=== PATIENT | female | born 1990 | race Caucasian/White ===

== ENCOUNTER → 2018-02-22 09:19 | Outpatient (CLI) | payer OTHER, SELFPAY ==
--- NOTE | 2018-02-22 09:21 | DI.US.S_ITS ---
PROCEDURE: US PELVIC COMPLETE INDICATIONS: left pelvic pain TECHNIQUE: Real-time scanning was performed of the pelvic organs, with image documentation. Additional endovaginal scanning was necessary due to incomplete visualization of the adnexal and endometrial structures by transabdominal scanning. COMPARISON: None. FINDINGS: Transabdominal scanning: Limited scanning through the kidneys shows no hydronephrosis. No pathologic free abdominal or pelvic fluid. Endovaginal scanning: Uterus: Uterus is normal in size at 4.0 x 5.9 x 8.6 cm, anteverted. The endometrium measures 12 mm in combined thickness. There is echogenic fluid within the endometrial space measuring up to 1.0 x 0.4 x 0.8 cm. A 4 x 5 x 3 mm polyp is noted within the endometrial canal Ovaries: The right ovary measures 2.1 x 2.6 x 2.5 cm and the left measures 1.8 x 2.6 x 3.4 cm. There is a cyst involving the left ovary containing low level internal echoes measuring up to 1.4 cm in maximal dimension. IMPRESSION: Anteverted uterus normal in size, without uterine fibroids. Endometrial lining demonstrates a 3 x 4 x 5 mm polyp and a very small amount of endometrial free fluid containing low level internal echoes. No adnexal mass lesion is seen. Note is made of a presumed hemorrhagic left ovarian small cyst measuring only 1.4 cm in maximal dimension. Dictated by: Rylan Jackson M.D. on 02/22/2018 at 13:05 Approved by: Rylan Jackson M.D. on 02/22/2018 at 13:08
== END ==
PROVIDERS: PCP Family Medicine; Visit Provider Registered Nurse
DX: R10.2 Pelvic and perineal pain (principal); N83.202 Unspecified ovarian cyst, left side; N84.0 Polyp of corpus uteri
CPT/HCPCS: 76830; 76856

== ENCOUNTER → 2018-02-26 14:14 | Outpatient (CLI) | payer OTHER, SELFPAY ==
[2018-02-26 15:25] LABS: Pregnancy Test Serum,Qual Positive (Negative)
== END ==
PROVIDERS: PCP Family Medicine; Visit Provider Registered Nurse
DX: N92.6 Irregular menstruation, unspecified (principal)
CPT/HCPCS: 36415; 84703

== ENCOUNTER → 2018-02-27 13:00 | Outpatient (CLI) | payer OTHER, SELFPAY | PROVIDERS: PCP Family Medicine | DX: Z23 Encounter for immunization (principal) | CPT/HCPCS: 90471; 90686 ==

== ENCOUNTER → 2018-03-12 10:04 | Outpatient (CLI) | payer OTHER, SELFPAY ==
[2018-03-12 11:03] LABS: HCG Quantitative /Beta subunit 9490.7 mIU/mL
--- NOTE | 2018-03-12 11:24 | DI.US.S_ITS ---
PROCEDURE: US PELVIC COMPLETE INDICATIONS: POSITIVE HCG; HEAVY BLEEDING TECHNIQUE: Real-time scanning was performed of the pelvic organs, with image documentation. Additional endovaginal scanning was necessary due to incomplete visualization of the adnexal and endometrial structures by transabdominal scanning. COMPARISON: [facility], US, US PELVIC COMPLETE, 02/22/2018, 10:02. FINDINGS: Transabdominal scanning: Limited scanning through the kidneys shows no hydronephrosis. No pathologic free abdominal or pelvic fluid. Endovaginal scanning: Uterus: Uterus is normal in size at 9.7 x 4.2 x 5.3 cm. The endometrium measures 11.6mm in combined thickness. No intrauterine is seen. Endometrial complex is irregular and heterogeneous with small amount of endometrial fluid. Ovaries: Ovaries normal bilaterally with left corpus luteal cyst measuring 1.5 x 1.3 x 1.1 cm. No adnexal masses or free fluid seen. IMPRESSION: 1. No intrauterine is seen and there is heterogeneity and complex endometrial fluid present which may represent clot. Very early intrauterine or occult ectopic cannot be excluded and close clinical correlation is recommended. If indicated followup ultrasound could be performed. Dictated by: Young Mclaughlin [facility] Interpreted: Harley Foley MD on 03/12/2018 at 14:06 Approved by: Harley Foley M.D. on 03/12/2018 at 15:58
== END ==
PROVIDERS: PCP Family Medicine; Visit Provider Family Medicine
DX: O26.859 Spotting complicating pregnancy, unspecified trimester (principal)
CPT/HCPCS: 36415; 76830; 76856; 84702

== ENCOUNTER → 2018-03-14 09:41 | Outpatient (CLI) | payer OTHER, SELFPAY ==
[2018-03-14 12:07] LABS: HCG Quantitative /Beta subunit 805.38 mIU/mL
== END ==
PROVIDERS: PCP Family Medicine; Visit Provider Family Medicine
DX: O03.9 Complete or unspecified spontaneous abortion without complication (principal)
CPT/HCPCS: 36415; 84702

== ENCOUNTER → 2018-03-16 11:49 | Outpatient (CLI) | payer OTHER, SELFPAY ==
[2018-03-16 14:42] LABS: HCG Quantitative /Beta subunit 222.62 mIU/mL
== END ==
PROVIDERS: PCP Family Medicine; Visit Provider Family Medicine
DX: O03.9 Complete or unspecified spontaneous abortion without complication (principal)
CPT/HCPCS: 36415; 84702

== ENCOUNTER → 2018-03-26 09:27 | Outpatient (CLI) | payer OTHER, SELFPAY ==
[2018-03-26 10:57] LABS: HCG Quantitative /Beta subunit 9.01 mIU/mL
== END ==
PROVIDERS: PCP Family Medicine; Visit Provider Family Medicine
DX: O03.9 Complete or unspecified spontaneous abortion without complication (principal)
CPT/HCPCS: 36415; 84702

== ENCOUNTER 2018-07-13 07:57 | Day surgery (SDC) | payer OTHER, SELFPAY ==
[2018-07-10 09:30] VITALS: BMI 41.9
[2018-07-13] VITALS (7 sets, daily range): BP systolic 97–123; BP diastolic 60–81; PULSE 69–85; RESP 12–16; TEMP 36.2–36.6; O2SAT 94–97; BMI 42.4
--- NOTE | 2018-07-13 | PATH_ITS ---
[facility] Accession Number: [id number] . 01 Material submitted: . LEEP BIOPSY . 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 ROBERTO-3 focally present at endocervical margin (at 12 o'clock to 3 o'clock aspect). Ectocervical margin negative for neoplasm. Negative for malignancy. MRV/07/16/2018 . 02 Electronically signed: . [place] MD, PhD, Pathologist NPI- [id number] . 01 Gross description: . Received in formalin, labeled short suture @ 6 o'clock, long suture @ 12 o'clock, LEEP biopsy, is a cervical LEEP biopsy received in two pieces oriented with two black sutures (long-12 o'clock, short-6 o'clock). Piece #1 (3.0 x 1.5 x 0.5 cm) is designated as 12 o'clock and piece #2 (2.5 x 1.2 x 0.3 cm) is designated as 6 o'clock. The mucosa is hester-white smooth and shiny. The resection margins are hester-goetz and finely granular. No nodules, masses or lesions are identified. Ink code: black-deep; blue-radial. Section code: Piece #1 is serially sectioned and entirely submitted 9 o'clock to 3 o'clock - (A1) 9 o'clock to 12 o'clock; (A2) 12 o'clock to 3 o'clock; piece #2 is serially sectioned and entirely submitted 9 o'clock to 3 o'clock - (A3) 9 o'clock to 6 o'clock; (A4) 6 o'clock to 3 o'clock. (JM:[facility] [id number]) /MRV . 02 Pathologist provided ICD-10: D06.0 . 02 CPT . 034115 Performed at: 01 [facility] [address] [id number] MD Sherman House MD Phone: [phone] Performed at: 02 [facility] [address] [place], [place] [id number] MD Sara Malonye MD Phone: [phone]
[2018-07-13] MEDS: LACTATED RINGERS 1,000 ML 42 ML IV (08:27)
--- NOTE | 2018-07-13 09:20 | PM.PREOP ---
Pre-operative Note Interval Note History & Physical reviewed/Exam performed by Physician: Yes Changes to H&P: No
--- NOTE | 2018-07-13 09:20 | PM.HP.1 ---
History of Present Illness Date Patient Seen: 07/13/18 Time Patient Seen: 09:22 Chief complaint: [id number] LEEP Narrative: Patient is a 28-year-old with ROBERTO 3/carcinoma in situ at the 1 o'clock position on her cervix She is here for LEEP cone biopsy of the cervix. Patient History Medical History Abnormal Pap smear of cervix (Chronic) Depression (Acute) No significant past surgical history (Acute) Vaginal delivery (Resolved ~05/2015) Family & Social History Social History: household members spouse,children lives independently Yes Tobacco & Substance use: Smoking Status Never smoker alcohol intake current Substance Use Type does not use Meds Home Medications Medication Instructions Recorded Confirmed Type sertraline 50 mg tablet 50 mg PO DAILY #90 tab 06/29/18 07/13/18 Rx Allergies Allergy/AdvReac Type Severity Reaction Status Date / Time No Known Drug Allergies Allergy Verified 07/13/18 08:11 Exam Vital Signs (past 8 hours): - 07/13/18 08:22 Temperature 97.8 F Pulse Rate 77 Respiratory Rate 15 Blood Pressure 103/69 Pulse Oximetry 97 Oxygen Delivery Method Room Air Narrative Exam Narrative: HEENT: No thyromegaly, no anterior cervical or supraclavicular lymphadenopathy. Lungs:Clear to auscultation bilaterally, no wheezes. Cardiovascular: Regular rate and rhythm, no murmurs, rubs, or gallops. Abdomen: No scars. No hepatosplenomegaly. No masses palpable. External genitalia: Normal Vagina: Normal Cervix: Aceto-white areas with vascular changes at the 1 o'clock position during colposcopy Bimanual exam: 6 Week size uterus. Mobile.]Rectal: No masses. 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 The risks including bleeding and infection. She understands these risks and agrees to proceed. A full PAR-Q was held and consent form was signed.
--- NOTE | 2018-07-13 09:21 | SUR.OPER ---
Lithotomy on padded OR bed, head on pillow, arms secured on padded arm boards at <90 degrees abduction. Legs secured in padded yellow fins stirrups.
--- NOTE | 2018-07-13 09:25 | P.HP_ITS ---
History of Present Illness Date Patient Seen: 07/13/18 Time Patient Seen: 09:22 Chief complaint: [id number] LEEP Narrative: Patient is a 28-year-old with ROBERTO 3/carcinoma in situ at the 1 o' clock position on her cervix She is here for LEEP cone biopsy of the cervix. Patient History Medical History Abnormal Pap smear of cervix (Chronic) Depression (Acute) No significant past surgical history (Acute) Vaginal delivery (Resolved ~05/2015) Family & Social History Social History: household members spouse,children lives independently Yes Tobacco & Substance use: Smoking Status Never smoker alcohol intake current Substance Use Type does not use Meds Home Medications Medication Instructions Recorded Confirmed Type sertraline 50 mg tablet 50 mg PO DAILY #90 tab 06/29/18 07/13/18 Rx Allergies Allergy/AdvReac Type Severity Reaction Status Date / Time No Known Drug Allergies Allergy Verified 07/13/18 08:11 Exam Vital Signs (past 8 hours): - 07/13/18 08:22 Temperature 97.8 F Pulse Rate 77 Respiratory Rate 15 Blood Pressure 103/69 Pulse Oximetry 97 Oxygen Delivery Method Room Air Narrative Exam Narrative: HEENT: No thyromegaly, no anterior cervical or supraclavicular lymphadenopathy. Lungs:Clear to auscultation bilaterally, no wheezes. Cardiovascular: Regular rate and rhythm, no murmurs, rubs, or gallops. Abdomen: No scars. No hepatosplenomegaly. No masses palpable. External genitalia: Normal Vagina: Normal Cervix: Aceto-white areas with vascular changes at the 1 o'clock position during colposcopy Bimanual exam: 6 Week size uterus. Mobile.]Rectal: No masses. 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 The risks including bleeding and infection. She understands these risks and agrees to proceed. A full PAR-Q was held and consent form was signed.
--- NOTE | 2018-07-18 13:43 | PM.GYNOP.1 ---
Operative Date/Time/Diagnoses Date of procedure: 07/16/18 Time of procedure: 10:30 Pre-op diagnosis: ROBERTO 3/carcinoma in situ of the cervix Post-op diagnosis: same Procedure: Procedures Operation Date: 07/13/18 09:15 Actual Procedures Side Surgeon p LEEP Procedure Celina Hinson MD Indications: ROBERTO 3/carcinoma in situ on colposcopic biopsy Surgeon: Celina Hinson Anesthesia Type: General (LMA) Operative Notes Findings: Large Lugol's light areas circumferentially around the transformation zone. Lugol's light area extending out from the 1 o'clock position. Closure Type: not applicable Specimen(s): other (Anterior lip, long suture at 12. Posterior lip, short suture at 6 o'clock) Estimated blood loss (mL): 10 Blood products transfused: none Procedure in detail: After informed consent was obtained, the patient was taken to the operating room where she was placed in the dorsal supine position. After adequate LMA general anesthesia was achieved, she was placed in the dorsal lithotomy position, and prepped and draped in the usual sterile fashion. A time-out was performed. A plastic coated bivalve speculum was placed into the vagina. The cervix was coated with Lugol solution. There were Lugol's light areas circumferentially around the transformation zone with an extension of the Lugol's light area at 1:00 a.m.. A plastic coated single-tooth tenaculum was placed on the anterior lip of the cervix. Using the 2 cm loop, the posterior lip of the cervix was excised with cautery at 40 w and cut at 60 w. Using the same loop, the anterior lip of the cervix was excised including the extension of the Lugol's light area at 1:00 a.m.. Hemostasis was achieved at the base of the cone using the ball cautery. The specimens were tagged with a long suture at 12:00 p.m. and a short suture at 6:00 a.m.. The plastic coated single-tooth tenaculum was removed from the anterior lip of the cervix. The plastic coated bivalve speculum was removed from the vagina. Sponge, lap, and instrument counts were correct x2. The patient tolerated the procedure well, and was taken to PACU in stable condition. Complications: none Post-operative Condition: stable Disposition: PACU Plan for aftercare: Home after recovery
== END 2018-07-13 11:15 | disposition home or self-care (01) ==
PROVIDERS: PCP Family Medicine; Visit Provider Obstetrics & Gynecology
PROC: 0UBC7ZZ Excision of Cervix, Via Natural or Artificial Opening (ICD-10-PCS; CPT 57522; principal; 2018-07-13 09:15)
DX: D06.0 Carcinoma in situ of endocervix (principal); F33.41 Major depressive disorder, recurrent, in partial remission
CPT/HCPCS: 57522; J1100; J1885; J2250; J2405; J2704; J3010

== ENCOUNTER → 2018-11-06 07:33 | Outpatient (CLI) | payer OTHER, SELFPAY ==
[2018-11-06 10:14] LABS: HCG Quantitative /Beta subunit 14427 mIU/mL
== END ==
PROVIDERS: PCP Family Medicine; Visit Provider Obstetrics & Gynecology
DX: N91.2 Amenorrhea, unspecified (principal)
CPT/HCPCS: 36415; 84702

== ENCOUNTER → 2018-11-27 14:55 | Outpatient (CLI) | payer OTHER, SELFPAY ==
[2018-11-27 15:17] LABS: Bilirubin Urine UA NEGATIVE (NEGATIVE); Color Urine UA YELLOW; Glucose Urine UA NEGATIVE (Negative); Ketones Urine UA NEGATIVE (NEGATIVE); Leukocyte Esterase Urine UA NEGATIVE (NEGATIVE); Nitrite Urine UA NEGATIVE (Negative); Occult Blood Urine UA 2+ (Negative); Protein Urine UA NEGATIVE (Negative); Specific Gravity Urine UA >=1.030 (1.000-1.035); pH Urine UA 5.5 (4.5-8.0)
[2018-11-27 15:19] LABS: Appearance Urine UA SL CLOUDY
[2018-11-27 15:25] LABS: Add Manual Diff / Slide Review NO; Basophils Absolute Auto 100 /uL (0-100); Basophils Percent Auto 0.7 % (0-2); Eosinophils Absolute Auto 300 /uL (0-450); Eosinophils Percent Auto 2.1 % (2-4); Hematocrit 38.2 % (36-46); Hemoglobin 12.8 g/dL (12.0-16.0); Lymphocytes Absolute Auto 3400 /uL (1100-4500); Lymphocytes Percent Auto 25.1 % (25-40); Mean Corpuscular HGB Conc 33.4 % (30-36); Mean Corpuscular Hemoglobin 27.2 PG (26-34); Mean Corpuscular Volume 81.2 fL (80-100); Monocytes Absolute Auto 900 /uL (0-900); Monocytes Percent Auto 6.8 % (3-14); Neutrophils Absolute Auto 8900 /uL (1500-7000); Neutrophils Percent Auto 65.3 % (50-75); Platelet Count 329 X10^3/uL (150-400); Red Cell Distribution Width 13.9 % (11.6-14.8); White Blood Cell Count 13.6 X10^3/uL (4.5-11.0)
[2018-11-27 16:53] LABS: HCG Quantitative /Beta subunit 117740 mIU/mL; Hepatitis B Surface Antigen NEGATIVE s/c (NEGATIVE)
[2018-11-27 16:54] LABS: Rubella Antibody IgG 27.4 IU/mL (>15)
[2018-11-27 17:06] LABS: HIV 1 and 2 Antibody NEGATIVE (NEGATIVE); Hep C Virus Ab w/Reflex Quant NEGATIVE s/c (NEGATIVE)
[2018-11-30 15:09] LABS: RPR Screen Nonreactive (Nonreactive)
== END ==
PROVIDERS: PCP Family Medicine; Visit Provider Obstetrics & Gynecology
DX: Z34.91 Encounter for supervision of normal pregnancy, unspecified, first trimester (principal); N91.2 Amenorrhea, unspecified
CPT/HCPCS: 36415; 80055; 81003; 84702; 86703; 86787; 86803; 86850; 86900; 86901; 87086

== ENCOUNTER → 2022-06-14 15:12 | Outpatient (CLI) | payer OTHER, SELFPAY ==
[2022-06-14 15:43] LABS: Hemoglobin A1C% w Est Avg Glu 5.9 % (4.0-6.0)
[2022-06-14 15:46] LABS: Alanine Aminotransferase 18 IU/L (<35); Albumin 4.4 g/dL (3.5-5.0); Albumin Globulin Ratio 1.2 (1.0-2.8); Alkaline Phosphatase 81 U/L (38-126); Aspartate Aminotransferase 18 IU/L (14-36); BUN Creatinine Ratio 16.9 (6-22); Bilirubin Total 0.1 mg/dL (0.2-1.3); Blood Urea Nitrogen 12 mg/dL (7-17); Calcium 9.1 mg/dL (8.4-10.2); Carbon Dioxide 27 mmol/L (22-32); Chloride 102 mmol/L (98-107); Cholesterol 166 mg/dL (140-199); Estimated Glomerular Filt Rate > 60 mL/min (>60); Globulin 3.6 g/dL (1.7-4.1); Glucose 92 mg/dL (70-100); HDL Cholesterol 37 mg/dL (40-60); HEMOLYSIS < 15 (0-50); LDL Cholesterol Calculated 86 mg/dL (<100); Potassium 3.9 mmol/L (3.4-5.1); Sodium 140 mmol/L (137-145); Triglycerides 213 mg/dL (35-150)
== END ==
PROVIDERS: PCP Family Medicine; Referring Provider Family Medicine; Visit Provider Family Medicine
DX: E66.01 Morbid (severe) obesity due to excess calories (principal)
CPT/HCPCS: 36415; 80053; 80061; 83036

== ENCOUNTER → 2023-12-27 08:55 | Outpatient (CLI) | payer OTHER, SELFPAY ==
[2023-12-28 13:26] LABS: Hemoglobin A1C% w Est Avg Glu 5.7 % (4.0-6.0)
== END ==
PROVIDERS: PCP Family Medicine; Referring Provider Family Medicine; Visit Provider Family Medicine
DX: R73.01 Impaired fasting glucose (principal); E88.819 Insulin resistance, unspecified
CPT/HCPCS: 36415; 83036

== ENCOUNTER → 2024-04-12 | Outpatient (CLI) | payer OTHER, SELFPAY | PROVIDERS: PCP Family Medicine; Referring Provider Internal Medicine; Visit Provider Internal Medicine | DX: Z23 Encounter for immunization (principal) | CPT/HCPCS: 90471; 90656 ==